=== PATIENT | male | born 1980 | race Caucasian/White ===

== ENCOUNTER 2017-11-21 17:35 | Emergency (ER) | payer BC, SELFPAY ==
[2017-11-21 18:55] LABS: Absolute Lymphocytes (CBC) 1.9 K/uL (0.7-4.9); Absolute Monocytes 0.5 K/uL (0.1-1.3); Absolute Neutrophil 4.2 K/uL (1.8-8.0); Basophils % 0.7 % (0-1.3); Eosinophils % 3.6 % (0-4.4); Hematocrit 42.9 % (39.6-49.0); Lymphocytes % 27.6 % (15.3-44.8); MCH 32.8 pg (27.0-35.0); MCV 93.9 fL (80-100); MPV 9.4 fL (7.6-11.3); Monocytes % 7.1 % (3.3-12.3); RBC Red Blood Cell Count 4.57 M/uL (4.33-5.43)
[2017-11-21 18:57] LABS: Protime INR 0.94
[2017-11-21] MEDS ORDERED: ASPIRIN 81 MG CHEWABLE TABLET ONE (19:07)
[2017-11-21] MEDS ORDERED: MORPHINE 4 MG/ML SYR ONE (19:07)
[2017-11-21] MEDS ORDERED: ONDANSETRON 4 MG/2 ML VIAL ONE (19:08)
--- NOTE | 2017-11-21 19:13 | RAD REPORT ---
EXAM DESCRIPTION: RAD - Chest Single View - 11/21/2017 7:07 pm CLINICAL HISTORY: CHEST PAIN Chest pain. COMPARISON: No comparisons FINDINGS: Portable technique limits examination quality. The lungs are grossly clear. The heart is normal in size. No displaced fractures. IMPRESSION: No acute intrathoracic process suspected.
[2017-11-21 19:22] LABS: AST/SGOT 229 U/L (15-37); Albumin 3.7 g/dL (3.4-5.0); Alkaline Phosphatase 71 U/L (45-117); BUN Blood Urea Nitrogen 15 mg/dL (7-18); Bicarbonate 24 mmol/L (21-32); Bilirubin Direct 0.2 mg/dL (0-0.2); Bilirubin Total 0.6 mg/dL (0.2-1.0); Glucose Level 74 mg/dL (74-106); Magnesium 1.8 mg/dL (1.8-2.4); NT PRO-BNP 17 pg/mL (<125); Potassium 4.1 mmol/L (3.5-5.1); Protein, Total 7.2 g/dL (6.4-8.2); Sodium Level 137 mmol/L (136-145); Troponin (Emerg Dept Use Only) < 0.02 ng/mL (0.0-0.045)
[2017-11-21 19:23] LABS: ALT/SGPT 399 U/L (12-78)
--- NOTE | 2017-11-21 20:28 | RAD REPORT ---
EXAM DESCRIPTION: US - Abdomen Exam Limited - 11/21/2017 8:22 pm CLINICAL HISTORY: elevated liver enzymes COMPARISON: No comparisons FINDINGS: The gallbladder demonstrates no gallstones. No pericholecystic fluid or gallbladder wall t hickening. The common bile duct is normal measuring 4 mm. The liver demonstrates fatty liver. IMPRESSION: Negative gallbladder/biliary tree findings. Fatty liver.
--- NOTE | 2017-11-21 21:30 | EDPHYS ---
Physician Documentation [facility] Name: Hunter Shields Age: 37 yrs Sex: Male : 1980 Arrival Date: 11/21/2017 Time: 17:36 Bed 23 Private MD: ED Physician Omi Razo HPI: 11/21 18:30 This 37 yrs old Male presents to ER via Ambulatory with complaints of Chest cp Pain, Shortness Of Breath. 18:30 The patient or guardian reports chest pain that is located primarily in the anterior cp chest wall. 18:30 The pain does not radiate. Associated signs and symptoms: Pertinent positives: cp shortness of breath, Pertinent negatives: abdominal pain, diaphoresis, dizziness, lower extremity pain, lower extremity swelling, palpitations, recent travel, syncope, vomiting. 18:30 The chest pain is described as sharp. Duration: The patient or guardian reports a cp single episode, that is still ongoing, but improving. Severity of pain: in the emergency department the pain has improved. Historical: - Allergies: 17:48 No Known Allergies; aj1 - Home Meds: 17:48 amlodipine oral [Active]; Propranolol Oral [Active]; aj1 - PMHx: 17:48 Hypertension; tremors; aj1 - Immunization history:: Flu vaccine is not up to date. - Social history:: Smoking status: Patient uses tobacco products, smokes one pack cigarettes per day. - Ebola Screening: : Patient denies travel to an Ebola-affected area in the 21 days before illness onset. ROS: 18:35 Constitutional: Negative for body aches, chills, fever, poor PO intake. cp 18:35 Eyes: Negative for injury, pain, redness, and discharge. cp 18:35 ENT: Positive for sinus congestion, Negative for drainage from ear(s), ear pain, sore throat, difficulty swallowing, difficulty handling secretions. 18:35 Cardiovascular: Positive for chest pain, palpitations, Negative for edema. 18:35 Respiratory: Negative for cough, shortness of breath, wheezing. 18:35 Abdomen/GI: Negative for abdominal pain, vomiting, diarrhea, constipation, black/tarry stool, rectal bleeding. 18:35 Back: Negative for pain at rest, pain with movement, radiated pain. 18:35 Skin: Negative for cellulitis, rash. 18:35 Neuro: Negative for altered mental status, headache, syncope, weakness. 18:35 All other systems are negative. Exam: 18:10 ECG was reviewed by the Attending Physician. cp 18:40 Constitutional: The patient appears in no acute distress, alert, awake, cp non-diaphoretic, non-toxic, well developed, well nourished. 18:40 Head/Face: Normocephalic, atraumatic. Eyes: Pupils equal round and reactive to light, cp extra-ocular motions intact. Lids and lashes normal. Conjunctiva and sclera are non-icteric and not injected. Cornea within normal limits. Periorbital areas with no swelling, redness, or edema. ENT: Nares patent. No nasal discharge, no septal abnormalities noted. Tympanic membranes are normal and external auditory canals are clear. Oropharynx with no redness, swelling, or masses, exudates, or evidence of obstruction, uvula midline. Mucous membranes moist. Chest/axilla: Normal chest wall appearance and motion. Nontender with no deformity. No lesions are appreciated. 18:40 Cardiovascular: Rate: normal, Rhythm: regular, Pulses: Pulses are 2+ in right radial artery and left radial artery. Heart sounds: murmur, not appreciated, Edema: is not appreciated. 18:40 Respiratory: the patient does not display signs of respiratory distress, Respirations: normal, no use of accessory muscles, no retractions, no splinting, no tachypnea, labored breathing, is not present, Breath sounds: are clear throughout, no decreased breath sounds, no stridor, no wheezing. 18:40 Abdomen/GI: Inspection: abdomen appears normal, Bowel sounds: active, all quadrants, Palpation: abdomen is soft and non-tender, in all quadrants, rebound tenderness, is not appreciated, voluntary guarding, is not appreciated, involuntary guarding, is not appreciated. 18:40 Back: pain, is absent, ROM is normal. 18:40 Skin: cellulitis, is not appreciated, no rash present. 18:40 Neuro: Orientation: to person, place \T\ time. Mentation: lucid, able to follow commands, Cerebellar function: is grossly normal, Motor: moves all fours, strength is normal, Sensation: no obvious gross deficits, Gait: is steady. 21:00 ECG was reviewed by the Attending Physician. cp Vital Signs: 17:48 BP 136 / 94; Pulse 67; Resp 18; Temp 98.0; Pulse Ox 98% on R/A; Weight 79.38 kg (R); aj1 Height 5 ft. 8 in. (172.72 cm); Pain 2/10; 18:10 BP 125 / 94; Pulse 59; Resp 20; Pulse Ox 95% on R/A; kr2 19:12 BP 124 / 94; Pulse 71; Resp 19; Pulse Ox 96% on R/A; kr2 20:23 BP 146 / 96 LA Sitting (auto/reg); Pulse 65; Resp 19; Pulse Ox 99% on R/A; jp3 20:46 BP 131 / 59; Pulse 68; Resp 19; Pulse Ox 100% on R/A; kr2 17:48 Body Mass Index 26.61 (79.38 kg, 172.72 cm) aj1 MDM: 17:52 Patient medically screened. cp 19:00 Differential diagnosis: abnormal EKG, acute myocardial infarction, acute pericarditis, cp chest wall pain, cholecystitis, Cholelithiasis costochondritis, esophagitis, gastritis, pancreatitis, pleurisy, pneumonia, pneumothorax, pulmonary embolus, stable angina, thoracic aortic disection, unstable angina. 21:29 Data reviewed: vital signs, nurses notes, lab test result(s), EKG, radiologic studies, cp plain films, ultrasound. 21:29 Test interpretation: by ED physician or midlevel provider: ECG, plain radiologic cp studies. Counseling: I had a detailed discussion with the patient and/or guardian regarding: the historical points, exam findings, and any diagnostic results supporting the discharge/admit diagnosis, lab results, radiology results, the need for outpatient follow up, a family practitioner, to return to the emergency department if symptoms worsen or persist or if there are any questions or concerns that arise at home. Response to treatment: the patient's symptoms have markedly improved after treatment, and as a result, I will discharge patient. Special discussion: Based on the patient's history, exam, and Dx evaluation, there is no indication for emergent intervention or inpatient Tx. It is understood by the patient/guardian that if the Sx's persist or worsen they need to return immediately for re-evaluation. 11/21 18:31 Order name: Basic Metabolic Panel; Complete Time: 19:24 cp 11/21 20:21 Interpretation: Normal except: GFR 75. cp 10/10 18:31 Order name: CBC with Diff; Complete Time: 19:24 cp 10/10 20:22 Interpretation: Reviewed. cp 10 18:31 Order name: LFT's; Complete Time: 19:24 cp 10/10 19:24 Interpretation: Normal except: AST 229; ALT 399. cp /10 18:31 Order name: Magnesium; Complete Time: 19:24 cp /10 18:31 Order name: NT PRO-BNP; Complete Time: 19:24 cp 10 18:31 Order name: PT-INR; Complete Time: 19:24 cp /10 18:31 Order name: Troponin (emerg Dept Use Only); Complete Time: 19:24 cp 10 20:31 Interpretation: Reviewed. cp 11/21 18:31 Order name: XRAY Chest (1 view); Complete Time: 19:24 cp 10 18:31 Order name: D-Dimer; Complete Time: 19:24 cp 10 19:25 Order name: Lipase; Complete Time: 19:52 cp 10 19:25 Order name: LAB Add On cp 11/21 19:53 Order name: US Abdomen Limited: RUQ/epigastric area; Complete Time: 20:30 cp 10 20:30 Interpretation: Report reviewed. cp 11/21 20:48 Order name: Troponin (emerg Dept Use Only); Complete Time: 21:28 kr2 11/21 17:58 Order name: EKG; Complete Time: 17:58 cp /10 17:58 Order name: EKG - Nurse/Tech; Complete Time: 18:07 cp 10 18:31 Order name: Cardiac monitoring; Complete Time: 18:43 cp /10 18:31 Order name: IV Saline Lock; Complete Time: 18:43 cp /10 18:31 Order name: Labs collected and sent; Complete Time: 18:43 cp /10 18:31 Order name: O2 Per Protocol; Complete Time: 18:43 cp /10 18:31 Order name: O2 Sat Monitoring; Complete Time: 18:43 cp 10/10 20:48 Order name: EKG; Complete Time: 20:48 cp /10 20:48 Order name: EKG - Nurse/Tech; Complete Time: 20:59 cp EC:10 Rate is 62 beats/min. Rhythm is regular. OR interval is normal. QRS interval is cp prolonged at 102 msec. QT interval is normal. Interpreted by me. Reviewed by me. 21:00 Rate is 57 beats/min. QRS [place] is Normal. OR interval is normal. QRS interval is cp normal. QT interval is normal. Interpreted by me. Reviewed by me. Administered Medications: 19:06 Drug: Aspirin Chewable Tablet 324 mg Route: PO; kr2 20:13 Follow up: Response: No adverse reaction kr2 19:08 Drug: Zofran 4 mg Route: IVP; Site: right antecubital; kr2 20:13 Follow up: Response: No adverse reaction; Nausea is decreased kr2 20:45 Not Given (Patient Refused): morphine 2 mg IVP once kr2 Disposition: 11/21/17 21:29 Discharged to Home. Impression: Chest pain, unspecified, Elevated Liver Enzymes. - Condition is Stable. - Discharge Instructions: Nonspecific Chest Pain, Aspirin and Your Heart. - Medication Reconciliation Form, Thank You Letter, Antibiotic Education, Prescription Opioid Use form. - Follow up: Private Physician; When: 2 - 3 days; Reason: chest pain and elevated liver enzymes. - Problem is new. - Symptoms have improved. Addendum: 11/25/2017 00:53 Co-signature as Attending Physician, Omi Razo MD. g s Signatures: Dispatcher [employer] [facility] Luciana Payne RN RN aj1 Tad Betancourt PA PA cp Omi Razo MD MD Fina Trevizo RN RN kr2 Corrections: (The following items were deleted from the chart) 11/21 20:48 20:48 EKG - Nurse/Tech ordered. kr2 kr2 21:08 20:48 TROPONIN I+C.LAB.BRZ ordered. [facility] 21:34 21:29 11/21/2017 21:29 Discharged to Home. Impression: Chest pain, unspecified; kr2 Elevated Liver Enzymes. Condition is Stable. Forms are Medication Reconciliation Form, Thank You Letter, Antibiotic Education, Prescription Opioid Use. Follow up: Private Physician; When: 2 - 3 days; Reason: chest pain and elevated liver enzymes. Problem is new. Symptoms have improved. cp
--- NOTE | 2017-11-21 21:30 | ER ---
Nurse's Notes [facility] Name: Hunter Shields Age: 37 yrs Sex: Male : 1980 Arrival Date: 11/21/2017 Time: 17:36 Bed 23 Private MD: Diagnosis: Chest pain, unspecified;Elevated Liver Enzymes Presentation: 11/21 17:46 Presenting complaint: Patient states: Chest pain, SOB since 11:00 this morning. Reports aj1 sinus drainage and body aches. Denies cough, fever. Reports palpitations, dizziness. Transition of care: patient was not received from another setting of care. Onset of symptoms was November 21, 2017 at 11:00. Risk Assessment: Do you want to hurt yourself or someone else? Patient reports no desire to harm self or others. Initial Sepsis Screen: Does the patient meet any 2 criteria? No. Patient's initial sepsis screen is negative. Does the patient have a suspected source of infection? No. Patient's initial sepsis screen is negative. Care prior to arrival: None. 17:46 Method Of Arrival: Ambulatory aj1 17:46 Acuity: DEVIN 3 aj1 Triage Assessment: 17:48 General: Appears in no apparent distress. comfortable, Behavior is calm, cooperative, aj1 appropriate for age. Pain: Complains of pain in mid-sternal area Pain currently is 2 out of 10 on a pain scale. Quality of pain is described as pressure. Neuro: Level of Consciousness is awake, alert, obeys commands. Cardiovascular: Patient's skin is warm and dry. Respiratory: Airway is patent Respiratory effort is even, unlabored, Respiratory pattern is regular, symmetrical. Historical: - Allergies: 17:48 No Known Allergies; aj1 - Home Meds: 17:48 amlodipine oral [Active]; Propranolol Oral [Active]; aj1 - PMHx: 17:48 Hypertension; tremors; aj1 - Immunization history:: Flu vaccine is not up to date. - Social history:: Smoking status: Patient uses tobacco products, smokes one pack cigarettes per day. - Ebola Screening: : Patient denies travel to an Ebola-affected area in the 21 days before illness onset. Screenin:10 Abuse screen: Denies threats or abuse. Denies injuries from another. Nutritional kr2 screening: No deficits noted. Tuberculosis screening: No symptoms or risk factors identified. Fall Risk None identified. Assessment: 18:08 General: Appears in no apparent distress. comfortable, well groomed, well developed, kr2 well nourished, Behavior is calm, cooperative, appropriate for age. Pain: Complains of pain in chest Pain does not radiate. Pain currently is 5 out of 10 on a pain scale. Quality of pain is described as pressure, Pain began 1130 this morning Is continuous, Alleviated by rest, Aggravated by increased activity. Neuro: Level of Consciousness is awake, alert, obeys commands, Oriented to person, place, time, situation, Appropriate for age. Cardiovascular: Capillary refill < 3 seconds in bilateral fingers Patient's skin is warm and dry. Respiratory: Airway is patent Respiratory effort is even, unlabored, Respiratory pattern is regular, symmetrical. GI: Reports nausea. EENT: Oral mucosa is moist. EENT: Reports nasal congestion since yesterday. Derm: Skin is intact, is healthy with good turgor, Skin is pink, warm \T\ dry. Musculoskeletal: Circulation, motion, and sensation intact. 19:09 Reassessment: Patient states he does not want morphine or pain medication at this time. kr2 Morphine on hold, provider notified. 19:12 Reassessment: Patient appears in no apparent distress at this time. Patient and/or kr2 family updated on plan of care and expected duration. Pain level reassessed. Patient is alert, oriented x 3, equal unlabored respirations, skin warm/dry/pink. 20:14 Reassessment: Patient in radiology at this time. kr2 20:45 Reassessment: Patient appears in no apparent distress at this time. Patient and/or kr2 family updated on plan of care and expected duration. Pain level reassessed. Patient is alert, oriented x 3, equal unlabored respirations, skin warm/dry/pink. Patient states symptoms have improved. Vital Signs: 17:48 BP 136 / 94; Pulse 67; Resp 18; Temp 98.0; Pulse Ox 98% on R/A; Weight 79.38 kg (R); aj1 Height 5 ft. 8 in. (172.72 cm); Pain 2/10; 18:10 BP 125 / 94; Pulse 59; Resp 20; Pulse Ox 95% on R/A; kr2 19:12 BP 124 / 94; Pulse 71; Resp 19; Pulse Ox 96% on R/A; kr2 20:23 BP 146 / 96 LA Sitting (auto/reg); Pulse 65; Resp 19; Pulse Ox 99% on R/A; jp3 20:46 BP 131 / 59; Pulse 68; Resp 19; Pulse Ox 100% on R/A; kr2 17:48 Body Mass Index 26.61 (79.38 kg, 172.72 cm) aj1 ED Course: 17:36 Patient arrived in ED. as 17:47 Triage completed. aj1 17:48 Arm band placed on Patient placed in an exam room. aj1 17:52 Tad Betancourt PA is PHCP. cp 17:52 Omi Razo MD is Attending Physician. cp 18:10 Patient has correct armband on for positive identification. Placed in gown. Bed in low kr2 position. Call light in reach. Side rails up X 1. Adult w/ patient. posting clerk on. Pulse ox on. NIBP on. Door closed. Head of bed elevated. 18:10 Patient maintains SpO2 saturation greater than 95% on room air. kr2 18:40 Inserted saline lock: 20 gauge in right antecubital area, using aseptic technique. kr2 Blood collected. 19:07 XRAY Chest (1 view) In Process Unspecified. EDMS 19:24 Fina Trevizo, RN is Primary Nurse. kr2 19:24 Notified Nurse Practitioner and/or Physician Breaker Oiler of a critical lab result(s), ALT kr2 399. 20:22 US Abdomen Limited: RUQ/epigastric area In Process Unspecified. EDMS 20:55 Repeat lab(s) drawn. by me, sent to lab. EKG done, by ED staff, reviewed by Tad KHAN. 20:59 Troponin (emerg Dept Use Only) Sent. kr2 21:33 No provider procedures requiring assistance completed. IV discontinued, intact, kr2 bleeding controlled, No redness/swelling at site. Pressure dressing applied. Administered Medications: 19:06 Drug: Aspirin Chewable Tablet 324 mg Route: PO; kr2 20:13 Follow up: Response: No adverse reaction kr2 19:08 Drug: Zofran 4 mg Route: IVP; Site: right antecubital; kr2 20:13 Follow up: Response: No adverse reaction; Nausea is decreased kr2 20:45 Not Given (Patient Refused): morphine 2 mg IVP once kr2 Outcome: 21:29 Discharge ordered by . cp 21:34 Discharged to home ambulatory, with family. kr2 21:34 Condition: good 21:34 Discharge instructions given to patient, family, Instructed on discharge instructions, follow up and referral plans. Demonstrated understanding of instructions, follow-up care. 21:34 Patient left the ED. kr2 Signatures: Dispatcher [employer] EDLuciana Gan RN RN aj1 Rika Garcia Corey, PA PA cp Reaves, Karey, RN RN kr2 Joseph Ramos jp3 Corrections: (The following items were deleted from the chart) 20:13 20:12 Response: No adverse reaction; Nausea is decreased kr2 kr2
--- NOTE | 2017-11-22 09:08 | EKG ---
Test Date: 2017-11-21 Test Time: 20:52:51 Tax Associate Attorney: APRIL MEASUREMENT RESULTS: Intervals: Rate: 57 CA: 134 QRSD: 92 QT: 420 QTc: 408 [place]: P: 51 CA: 134 QRS: 10 T: 37 INTERPRETIVE STATEMENTS: Sinus bradycardia Otherwise normal ECG Compared to ECG 11/21/2017 18:05:46 Sinus rhythm no longer present Electronically Signed On 11-22-17 09:07:15 CDT by Mike Moeller
--- NOTE | 2017-11-22 09:08 | EKG ---
Test Date: 2017-11-21 Test Time: 18:05:46 Java Lead: MG MEASUREMENT RESULTS: Intervals: Rate: 62 TN: 122 QRSD: 102 QT: 398 QTc: 403 [place]: P: 40 TN: 122 QRS: 5 T: 34 INTERPRETIVE STATEMENTS: Normal sinus rhythm Normal ECG No previous ECG available for comparison Electronically Signed On 11-22-17 09:07:52 CDT by Mike Moeller
== END 2017-11-21 21:34 | disposition home or self-care (01) ==
LOC: ER 17:35
DX: R94.5 Abnormal results of liver function studies (principal); I10 Essential (primary) hypertension; F17.210 Nicotine dependence, cigarettes, uncomplicated
CPT/HCPCS: 36415; 71045; 76705; 80048; 80076; 83690; 83735; 83880; 84484; 85025; 85379; 85610; 93005; 96374; 99285; J2405